=== PATIENT | male | born 1975 | race Caucasian/White ===

== ENCOUNTER → 2017-04-27 | Outpatient (CLI) | payer MEDICARE, BC ==
--- NOTE | 2017-04-27 09:42 | CT ---
EXAMINATION TYPE: CT brain wo/w con DATE OF EXAM: 04/27/2017 COMPARISON: NONE HISTORY: 41-year-old male Hydrocephalus TECHNIQUE: Examination was done in axial plane without intravenous contrast. Coronal and sagittal r econstructions performed. CT DLP: 2163.20 mGycm Automated exposure control for dose reduction was used. FINDINGS: Right parietal approach VENDING SERVICE TECHNICIAN shunt catheter with tip in the right paramedian posterior portion at the l evel of the posterior body of the corpus callosum. Additional right frontal tray holes are present. There is no hydrocephalus. No midline shift. No acute intracranial hemorrhage seen. Hypodensity right paramedian anterior frontal region without mass effect. Additional extensive enceph alomalacia right occipital lobe and right occipital parietal junction. Dural venous sinuses are patent no enhancing intracranial lesions seen. Paranasal sinuses and mastoid air cells well pneumatized. Orbits and globes appear intact. IMPRESSION: 1. Right sided parietal VENDING SERVICE TECHNICIAN shunt catheter with tip at the right paramedian region at the level of the posterior body of the corpus callosum. No significant hydrocephalus. Compare with outside priors to assess stability of the ventricular system. 2. Of encephalomalacia anterior right paramedian frontal lobe and right occipital lobe, right occipit oparietal junction suggest areas of prior infarcts. Clinically correlate. No priors available for com parison purposes. 3. No acute intracranial abnormality seen.
== END | disposition home or self-care (01) ==
LOC: RADCTMAIN 08:30
PROVIDERS: ATTEND Psychiatry & Neurology Neurology
DX: G93.89 Other specified disorders of brain (principal); Z98.2 Presence of cerebrospinal fluid drainage device
CPT/HCPCS: 70470; Q9967

== ENCOUNTER 2019-01-26 15:47 | Emergency (ER) | payer MEDICARE, BC ==
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
[2019-01-26 16:19] VITALS: RESP 18
[2019-01-26] MEDS ORDERED: SODIUM CHLORIDE 0.9% 1,000 ML IV STA (16:31)
[2019-01-26] MEDS ORDERED: PANTOPRAZOLE 40 MG/10 ML VIAL IVP STA (16:31)
[2019-01-26 16:54] LABS: Basophils % (A) 0 %; Eosinophils # (A) 0.1 k/uL (0-0.7); Eosinophils % (A) 1 %; HCT 43.4 % (39.0-53.0); Lymphocytes # (A) 0.6 k/uL (1.0-4.8); Lymphocytes % (A) 8 %; MCH 24.1 pg (25.0-35.0); MCHC 32.3 g/dL (31.0-37.0); MCV 74.8 fL (80.0-100.0); Mean Platelet Volume 7.2; Microcytosis Slight; Monocytes # (A) 0.3 k/uL (0-1.0); Monocytes % (A) 5 %; Neutrophils % (A) 85 %; Platelet Count 382 k/uL (150-450); RBC 5.81 m/uL (4.30-5.90); RDW 15.7 % (11.5-15.5)
[2019-01-26 17:04] LABS: ALT 35 U/L (21-72); AST 21 U/L (17-59); Albumin 4.3 g/dL (3.5-5.0); Alkaline Phosphatase 106 U/L (38-126); Amylase 39 U/L (30-110); Anion Gap 10 mmol/L; Blood Urea Nitrogen 27 mg/dL (9-20); Calcium 9.6 mg/dL (8.4-10.2); Carbon Dioxide 34 mmol/L (22-30); Chloride 96 mmol/L (98-107); Glucose 113 mg/dL (74-99); Lipase 28 U/L (23-300); Potassium 3.5 mmol/L (3.5-5.1); Sodium 140 mmol/L (137-145); Total Bilirubin 0.8 mg/dL (0.2-1.3); Total Protein 7.6 g/dL (6.3-8.2)
[2019-01-26 17:05] LABS: Partial Thromboplastin Time 24.7 sec (22.0-30.0); Prothrombin Time 10.4 sec (9.0-12.0)
--- NOTE | 2019-01-26 17:20 | XR ---
Abdomen single view. History abdominal pain. Comparison 04/27/2011. FINDINGS: 2 views supine were obtained. Bowel gas pattern is normal. There is no sign of intestinal obstruction or pneumoperitoneum. There is inferior vena cava filter. Fecal pattern is normal. There are no patho logic calcifications over the kidneys. IMPRESSION: Nonacute abdomen. No change.
[2019-01-26] MEDS ORDERED: LORazepam 2 MG/ML INJ IV STA (18:30)
[2019-01-26 19:04] LABS: Magnesium 2.6 mg/dL (1.6-2.3); Phosphorus 3.7 mg/dL (2.5-4.5)
[2019-01-26 19:06] LABS: Creatine Kinase 51 U/L (55-170)
[2019-01-26 19:19] LABS: Creatine Kinase MB 0.5 ng/mL (0.0-2.4); Troponin I <0.012 ng/mL (0.000-0.034)
[2019-01-26 19:22] LABS: T4, Free (Free Thyroxine) 1.22 ng/dL (0.78-2.19)
[2019-01-26 19:53] LABS: Amorphous Sediment,Urine Rare /hpf; Appearance,Urine Clear (Clear); Bilirubin,Urine Negative (Negative); Blood,Urine Negative (Negative); Color,Urine Yellow; Glucose,Urine (UA) Negative (Negative); Ketones,Urine Trace (Negative); Leukocyte Esterase,Urine Negative (Negative); Mucus,Urine Few /hpf; Nitrite,Urine Negative (Negative); Protein,Urine 1+ (Negative); RBC,Urine <1 /hpf (0-5); Specific Gravity,Urine 1.029 (1.001-1.035); Sperm,Urine Rare /hpf; WBC,Urine 1 /hpf (0-5)
[2019-01-26 21:25] VITALS: BP 143/98; PULSE 90; TEMP 98
== END 2019-01-26 21:20 | disposition left against medical advice (07) ==
LOC: EC 15:47 → EEVIPCON 15:47 → EC 21:20
DX: E86.0 Dehydration (principal); R11.10 Vomiting, unspecified; I45.81 Long QT syndrome; K21.9 Gastro-esophageal reflux disease without esophagitis; D64.9 Anemia, unspecified; F41.9 Anxiety disorder, unspecified; Z86.14 Personal history of Methicillin resistant Staphylococcus aureus infection; Z79.1 Long term (current) use of non-steroidal anti-inflammatories (NSAID); Z79.899 Other long term (current) drug therapy; Z91.048 Other nonmedicinal substance allergy status; Z53.29 Procedure and treatment not carried out because of patient's decision for other reasons
CPT/HCPCS: 36415; 93005; 84439; 84481; 80053; 82150; 82550; 82553; 83690; 83735; 84100; 84443; 84484; 85025; 85610; 85730; 81001; 74018; 99284; 96374; 96375; 96361 ×5; J2060; C9113

== ENCOUNTER 2020-03-23 14:42 | Emergency (ER) | payer MEDICARE, BC ==
[2020-03-23 14:55] VITALS: TEMP 98.6
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
[2020-03-23] MEDS ORDERED: SODIUM CHLORIDE 0.9% 500 ML 500 ML IV STA (15:13)
[2020-03-23] MEDS ORDERED: SODIUM CHLORIDE 0.9% 1,000 ML IV STA (15:13)
[2020-03-23] MEDS ORDERED: PANTOPRAZOLE 40 MG/10 ML VIAL IVP STA (15:13)
[2020-03-23] MEDS ORDERED: ONDANSETRON 4 MG/2 ML VIAL IVP STA (15:13)
[2020-03-23 15:27] LABS: Anisocytosis Slight; Basophils # (A) 0.1 k/uL (0-0.2); Basophils % (A) 1 %; Eosinophils # (A) 0.2 k/uL (0-0.7); Eosinophils % (A) 1 %; HCT 35.7 % (39.0-53.0); HGB 10.8 gm/dL (13.0-17.5); Hypochromasia Marked; Lymphocytes # (A) 0.5 k/uL (1.0-4.8); Lymphocytes % (A) 4 %; MCH 20.8 pg (25.0-35.0); MCHC 30.3 g/dL (31.0-37.0); MCV 68.8 fL (80.0-100.0); Mean Platelet Volume 7.8; Microcytosis Marked; Monocytes # (A) 0.5 k/uL (0-1.0); Monocytes % (A) 4 %; Neutrophils # (A) 10.2 k/uL (1.3-7.7); Neutrophils % (A) 89 %; Platelet Count 269 k/uL (150-450); RBC 5.18 m/uL (4.30-5.90); RDW 17.8 % (11.5-15.5); WBC 11.4 k/uL (3.8-10.6)
[2020-03-23 15:47] LABS: INR 1.1 (<1.2); Partial Thromboplastin Time 20.3 sec (22.0-30.0); Prothrombin Time 10.8 sec (9.0-12.0)
[2020-03-23 15:48] LABS: ALT 18 U/L (4-49); AST 43 U/L (17-59); African American GFR (CKD) >90 (>60 ml/min/1.73 sqM); Albumin 4.3 g/dL (3.5-5.0); Alkaline Phosphatase 81 U/L (38-126); Anion Gap 10 mmol/L; Blood Urea Nitrogen 19 mg/dL (9-20); Calcium 8.9 mg/dL (8.4-10.2); Carbon Dioxide 27 mmol/L (22-30); Chloride 102 mmol/L (98-107); Creatine Kinase 63 U/L (55-170); Glucose 119 mg/dL (74-99); Magnesium 2.1 mg/dL (1.6-2.3); Non-African American GFR(CKD) >90 (>60 ml/min/1.73 sqM); Potassium 4.5 mmol/L (3.5-5.1); Sodium 139 mmol/L (137-145); Total Protein 7.7 g/dL (6.3-8.2)
[2020-03-23] MEDS ORDERED: LORazepam 2 MG/ML INJ IV STA (16:36)
[2020-03-23 17:38] VITALS: RESP 20
[2020-03-23 17:39] VITALS: PULSE 89
--- NOTE | 2020-03-23 17:39 | CT ---
EXAMINATION TYPE: CT abdomen pelvis w con DATE OF EXAM: 03/23/2020 COMPARISON: None HISTORY: Nausea, vomiting, abdominal pain. CT DLP: 1532.8 mGycm Automated exposure control for dose reduction was used. CONTRAST: Performed with IV Contrast, patient injected with 100 mL of Isovue 300. Images obtained from the diaphragm to the floor the pelvis with IV contrast. There is some mild subsegmental atelectasis at the lung bases. Heart is enlarged. There is hiatal her carol ann. Liver shows no focal defect. There is fatty infiltration of the liver. Bile ducts are not dilate d. Gallbladder appears normal. Spleen is intact. There is no pancreatic mass. There is no adrenal mass. Kidneys show satisfactory contrast opacification. There is no hydronephrosi s. Ureters are not dilated. There is inferior vena cava filter. There is no retroperitoneal adenopath y. Bladder distends smoothly. There is no inguinal hernia. There is no free fluid in the pelvis. Ther e is apparent ventriculoperitoneal shunt catheter on the right side of the abdomen. There is mild tho racolumbar dextroscoliosis. Bony pelvis is intact. There is no lumbar compression fracture. There is some mild fluid in the right paracolic gutter. This could be from the shunt catheter. There is no sig n of thickened appendix. IMPRESSION: Tiny amount of fluid at the right paracolic gutter at the tip of the shunt catheter could be from the shunt catheter. No other fluid collection seen. Mild fatty infiltration of the liver. Mild subsegmental atelectasis at the lung bases. Hiatal hernia.
[2020-03-23] MEDS ORDERED: ONDANSETRON 4 MG/2 ML VIAL IVP PRN (17:44)
[2020-03-23 18:26] VITALS: BP 127/85
[2020-03-24] MEDS ORDERED: PANTOPRAZOLE 40 MG/10 ML VIAL IVP SCH (09:00)
== END 2020-03-23 18:35 | disposition other institution (70) ==
LOC: EC 14:42 → 4SSUR 17:44 → UNDOADMIN 17:44 → EC 18:35
DX: K92.0 Hematemesis (principal); R10.13 Epigastric pain; R63.0 Anorexia; K21.9 Gastro-esophageal reflux disease without esophagitis; E07.9 Disorder of thyroid, unspecified; F41.9 Anxiety disorder, unspecified; Z86.14 Personal history of Methicillin resistant Staphylococcus aureus infection; Z90.49 Acquired absence of other specified parts of digestive tract; Z79.1 Long term (current) use of non-steroidal anti-inflammatories (NSAID); Z79.899 Other long term (current) drug therapy; Z91.048 Other nonmedicinal substance allergy status; Z53.29 Procedure and treatment not carried out because of patient's decision for other reasons
CPT/HCPCS: 99285; 96374; 96361 ×3; 36415; 93005; 86900; 86901; 80053; 82550; 83605; 83690; 83735; 84484; 85025; 85610; 85730; 86850; 74177; C9113; Q9967

== ENCOUNTER → 2020-04-09 | Outpatient (CLI) | payer MEDICARE, BC ==
[2020-04-09 14:58] LABS: Anisocytosis Slight; HCT 30.4 % (39.0-53.0); Hypochromasia Marked; MCH 20.2 pg (25.0-35.0); MCHC 29.3 g/dL (31.0-37.0); MCV 68.8 fL (80.0-100.0); Mean Platelet Volume 7.2; Microcytosis Marked; Platelet Count 481 k/uL (150-450); RBC 4.42 m/uL (4.30-5.90); WBC 3.8 k/uL (3.8-10.6)
[2020-04-09 15:11] LABS: HGB 8.9 gm/dL (13.0-17.5)
[2020-04-09 16:08] LABS: Anisocytosis (M) Present; Basophils # (M) 0.08 k/uL (0-0.2); Eosinophils # (M) 0.11 k/uL (0-0.7); Lymphocytes # (M) 1.37 k/uL (1.0-4.8); Monocytes # (M) 0.19 k/uL (0-1.0); Neutrophils # (M) 2.05 k/uL (1.3-7.7); Neutrophils % (M) 54 %; Nucleated Red Blood Cells 0 /100 WBC (0-0); Ovalocytes Present; Poikilocytosis (M) Present; Polychromasia Present; Target Cells Present; Tear Drop Cells Present; Total Cells Counted 100
[2020-04-09 20:36] LABS: % Iron Saturation 13.3 (15.00-50.00)
== END | disposition home or self-care (01) ==
LOC: LABWHC1 14:00
PROVIDERS: ATTEND Internal Medicine Gastroenterology
DX: D64.9 Anemia, unspecified (principal)
CPT/HCPCS: 36415; 82728; 83540; 83550; 85025

== ENCOUNTER → 2020-07-03 | Day surgery (SDC) | payer MEDICARE, BC ==
[2020-06-28 16:11] VITALS: BMI 21.9
[~2020-07-03] MED LIST: LACTATED RINGERS 1,000 ML IV SCH; LIDOCAINE 1% INJ 10MG/ML (20 ML MDV) ONE; ONDANSETRON 4 MG/2 ML VIAL IVP PRN; PROPOFOL 10 MG/ML 20 ML VIAL IV ONE
[2020-07-03 08:12] VITALS: TEMP 97
--- NOTE | 2020-07-03 09:00 | P.PCN ---
Date of Procedure: 07/03/20 Procedure(s) Performed: BRIEF HISTORY: Patient is a 45-year-old, pleasant, white male scheduled for an upper endoscopy as a part of evaluation of persistent nausea vomiting for the last several months duration. He has been on omeprazole 20 mg daily and initially did well for a few weeks but now continues to have persistent symptoms. PROCEDURE PERFORMED: Esophagogastroduodenoscopy with biopsy. PREOPERATIVE DIAGNOSIS: Chronic nausea vomiting of several months duration. IV sedation per anesthesia. PROCEDURE: After informed consent was obtained, the patient was brought into the endoscopy unit. IV sedation was administered by Anesthesia under continuous monitoring. Initially the Olympus GIF-140 video endoscope was inserted into the mouth. Esophagus intubated without any difficulty. It was gradually advanced into the stomach and duodenum and carefully examined. The bulb and the second part of the duodenum appeared normal. Biopsies were done from the duodenum to rule out celiac disease. The scope at this time was withdrawn to the stomach, adequately insufflated with air, and upon careful examination, mucosa of the antrum, had mild diffuse gastritis and biopsies were done from this area. The body, cardia and the fundus appeared normal. The scope was then withdrawn into the esophagus. The GE junction was located at 39 cm from the incisors. Small hiatal hernia noted. There were linear erosions in the distal esophagus with severe erythema of the mucosa and some exudates consistent with LA grade C reflux esophagitis. Rest of esophagus appeared normal and the patient tolerated the procedure well. IMPRESSION: 1. Severe esophagitis with linear erosions erythema in the distal esophagus consistent with LA grade C reflux esophagitis. 2. Small hiatal hernia 3. Mild antral gastritis. RECOMMENDATIONS: The findings of this examination were discussed with the patient as well as his family. He was advised to increase omeprazole to 20 mg twice daily and continue to follow antireflux measures. He'll be seen in office in 6 weeks..
[2020-07-03 09:32] VITALS: BP 107/65; PULSE 62; RESP 18
== END ==
LOC: ORWHC2ENDO 07:39
PROVIDERS: ATTEND Internal Medicine Gastroenterology
DX: K29.50 Unspecified chronic gastritis without bleeding (principal); K21.0 Gastro-esophageal reflux disease with esophagitis; K22.10 Ulcer of esophagus without bleeding; K44.9 Diaphragmatic hernia without obstruction or gangrene; I69.398 Other sequelae of cerebral infarction; F79 Unspecified intellectual disabilities; Z91.09 Other allergy status, other than to drugs and biological substances; Z79.899 Other long term (current) drug therapy
CPT/HCPCS: 88305; 43239; J2001; J2704

== ENCOUNTER → 2020-08-22 | Outpatient (CLI) | payer MEDICARE, BC ==
[2020-08-22 15:54] LABS: Anisocytosis Slight; Basophils # (A) 0.1 k/uL (0-0.2); Basophils % (A) 2 %; Eosinophils # (A) 0.1 k/uL (0-0.7); Eosinophils % (A) 2 %; HCT 31.9 % (39.0-53.0); HGB 9.2 gm/dL (13.0-17.5); Hypochromasia Marked; Lymphocytes # (A) 1.1 k/uL (1.0-4.8); Lymphocytes % (A) 25 %; MCH 19.8 pg (25.0-35.0); MCV 68.1 fL (80.0-100.0); Mean Platelet Volume 7.1; Microcytosis Marked; Monocytes # (A) 0.3 k/uL (0-1.0); Monocytes % (A) 7 %; Neutrophils # (A) 2.6 k/uL (1.3-7.7); Neutrophils % (A) 61 %; Platelet Count 374 k/uL (150-450); RBC 4.68 m/uL (4.30-5.90); RDW 17.8 % (11.5-15.5); WBC 4.3 k/uL (3.8-10.6)
[2020-08-23 01:46] LABS: % Iron Saturation 5.25 (15.00-50.00); Ferritin 3.1 ng/mL (22.0-322.0)
== END | disposition home or self-care (01) ==
LOC: LABWHC1 14:55
PROVIDERS: ATTEND Internal Medicine Gastroenterology
DX: D64.9 Anemia, unspecified (principal)
CPT/HCPCS: 36415; 82728; 83540; 83550; 85025

== ENCOUNTER 2023-03-16 17:03 | Inpatient (IN) | payer MEDICARE, BC ==
[2023-03-16] MEDS ORDERED: SODIUM CHLORIDE 0.9% 500 ML 500 ML IV STA (17:32)
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
[2023-03-16] MEDS ORDERED: LORazepam 2 MG/ML INJ IV STA (18:23)
[2023-03-16] MEDS ORDERED: levETIRAcetam IV 1,000 MG in SODIUM CHLORIDE 0.9% 250 ML IVPB ONE (18:23)
[2023-03-16] MEDS ORDERED: levETIRAcetam IV 500 MG/5 ML VIAL IVP ONE (18:45)
[2023-03-16 19:00] LABS: Albumin 3.2 g/dL (3.5-5.0); Calcium 8.4 mg/dL (8.4-10.2); Magnesium 2.5 mg/dL (1.6-2.3); Potassium 2.9 mmol/L (3.5-5.1); Total Bilirubin 1.2 mg/dL (0.2-1.3); Total Protein 6.1 g/dL (6.3-8.2)
--- NOTE | 2023-03-16 19:18 | CT ---
EXAMINATION TYPE: CT brain wo con DATE OF EXAM: 03/16/2023 COMPARISON: 04/27/2017 INDICATION: seizure DLP: 1157.4 mGycm, Automated exposure control for dose reduction was used. CONTRAST: None CT of the brain is performed utilizing 3 mm thick sections through the posterior fossa and 3 mm thick sections through the remaining calvarium. Study is performed within 24 hours of arrival to the hosp ital. No abnormal hyperdensity is present to suggest an acute intracranial hemorrhage. No mass lesion is evident. No acute infarcts are evident. There is an old area of encephalomalacia of the right medial occipital lobe. There is placement of a shunt catheter with the tip in the posterior horn right lateral ventri justin. No temporal horn dilatation is evident. Third ventricle is midline. There is some mild extra-axi al space prominence near the vertex. Prior craniotomy is on the right. Findings appear stable from th e comparison. Ventricles and sulci are appropriate for the patient age. Paranasal sinuses and mastoid air cells within the [id number] are clear. IMPRESSIONS: 1. Shunt catheter appears stable from comparison. No hydrocephalus is evident. 2. Encephalomalacia of the medial right occipital lobe, unchanged from comparison. 3. No acute intracranial process apparent.
[2023-03-16] MEDS ORDERED: ONDANSETRON 4 MG/2 ML VIAL IVP PRN (20:15)
[2023-03-16] MEDS ORDERED: ACETAMINOPHEN TAB 325 MG TAB PO PRN (20:15)
[2023-03-16] MEDS ORDERED: NALOXONE 0.4 MG/ML 1 ML VIAL IV PRN (20:15)
[2023-03-16] MEDS ORDERED: POTASSIUM CHLORIDE ER 20 MEQ TAB.ER PO STA (20:17)
[2023-03-16 20:26] LABS: Anisocytosis Slight; Basophils # (A) 0.1 k/uL (0-0.2); Basophils % (A) 0 %; Eosinophils % (A) 0 %; Hypochromasia Marked; Lymphocytes # (A) 0.9 k/uL (1.0-4.8); Lymphocytes % (A) 5 %; MCH 18.4 pg (25.0-35.0); MCHC 28.4 g/dL (31.0-37.0); MCV 64.8 fL (80.0-100.0); Mean Platelet Volume 8.8; Microcytosis Marked; Monocytes # (A) 1.1 k/uL (0-1.0); Monocytes % (A) 7 %; Neutrophils # (A) 14.1 k/uL (1.3-7.7); Neutrophils % (A) 86 %; Platelet Count 374 k/uL (150-450); Poikilocytosis Slight; RBC 4.32 m/uL (4.30-5.90); RDW 18.8 % (11.5-15.5); WBC 16.4 k/uL (3.8-10.6)
--- NOTE | 2023-03-16 20:53 | XR ---
EXAMINATION TYPE: XR chest 1V portable DATE OF EXAM: 03/16/2023 COMPARISON: 11/27/2013 INDICATION: Fever seizures TECHNIQUE: Single frontal view of the chest is obtained. FINDINGS: The heart size is normal. The pulmonary vasculature is normal. Mild infiltrates in the right lower lobe. Correlate for atelectasis and pneumonia Catheter may lie along the right lateral chest. IMPRESSION: 1. Right lower lobe infiltrate. Correlate for atelectasis and pneumonia
[2023-03-16] MEDS ORDERED: Potassium Replacement Protocol 1 EACH MISC MISCELLANE PRN (22:50)
[2023-03-16 22:55] LABS: Glucose,Whole Blood 111 mg/dL (70-110)
[2023-03-16] MEDS: FAMOTIDINE 20 MG TAB PO SCH (23:29)
[2023-03-16] MEDS: SODIUM CHLORIDE 0.9% 1,000 ML IV SCH (23:44)
[2023-03-16] MEDS: PIPERACILLIN-TAZOBACTAM 3.375 GM in SODIUM CHLORIDE 0.9% 100 ML IVPB SCH (23:47)
[2023-03-16] MEDS: POTASSIUM CHLORIDE 20 MEQ in WATER FOR INJECTION 1 100ML.BAG IVPB SCH (23:49)
[2023-03-17 00:15] LABS: Amorphous Sediment,Urine Moderate /hpf; Appearance,Urine Cloudy (Clear); Bacteria,Urine Moderate /hpf; Bilirubin,Urine Negative (Negative); Blood,Urine Negative (Negative); Calcium Oxalate Crystals,Urine Occasional /hpf; Color,Urine Yellow; Glucose,Urine (UA) Negative (Negative); Hyaline Casts,Urine 20 /lpf (0-2); Ketones,Urine Negative (Negative); Leukocyte Esterase,Urine Negative (Negative); Mucus,Urine Occasional /hpf; Nitrite,Urine Negative (Negative); PH, Urine 5.5 (5.0-8.0); Protein,Urine 1+ (Negative); RBC,Urine 2 /hpf (0-5); Specific Gravity,Urine 1.026 (1.001-1.035); WBC,Urine 5 /hpf (0-5)
[2023-03-17] MEDS: POTASSIUM CHLORIDE 20 MEQ in WATER FOR INJECTION 1 100ML.BAG IVPB SCH ×2 (01:41→03:43)
[2023-03-17] MEDS ORDERED: LORazepam 2 MG/ML INJ IV PRN (05:23)
[2023-03-17] MEDS ORDERED: MORPHINE SULFATE 2 MG/ML SYRINGE IVP PRN (06:14)
[2023-03-17] MEDS: PIPERACILLIN-TAZOBACTAM 3.375 GM in SODIUM CHLORIDE 0.9% 100 ML IVPB SCH ×3 (06:27→22:48)
[2023-03-17] MEDS: levETIRAcetam IV 500 MG/5 ML VIAL IVP SCH ×2 (06:49→18:35)
[2023-03-17] MEDS ORDERED: levETIRAcetam IV 1,000 MG in SODIUM CHLORIDE 0.9% 250 ML IVPB SCH (07:00)
[2023-03-17] MEDS: oxyBUTYnin chloride 5 MG TAB PO SCH ×3 (09:45→19:41)
[2023-03-17] MEDS: FAMOTIDINE 20 MG TAB PO SCH ×2 (09:45→19:41)
[2023-03-17] MEDS: SODIUM CHLORIDE 0.9% 1,000 ML IV SCH (10:57)
[2023-03-17 11:19] LABS: Anisocytosis Slight; Basophils % (A) 1 %; Eosinophils # (A) 0.1 k/uL (0-0.7); Eosinophils % (A) 1 %; HCT 26.2 % (39.0-53.0); HGB 7.2 gm/dL (13.0-17.5); Hypochromasia Marked; Lymphocytes # (A) 0.8 k/uL (1.0-4.8); Lymphocytes % (A) 12 %; MCH 18.1 pg (25.0-35.0); MCHC 27.6 g/dL (31.0-37.0); MCV 65.7 fL (80.0-100.0); Mean Platelet Volume 8.7; Microcytosis Marked; Monocytes # (A) 0.5 k/uL (0-1.0); Monocytes % (A) 7 %; Neutrophils # (A) 5.5 k/uL (1.3-7.7); Neutrophils % (A) 77 %; Platelet Count 279 k/uL (150-450); Poikilocytosis Slight; RBC 3.98 m/uL (4.30-5.90); WBC 7.1 k/uL (3.8-10.6)
[2023-03-17 11:32] LABS: Calcium 8.2 mg/dL (8.4-10.2); Magnesium 2.6 mg/dL (1.6-2.3)
[2023-03-17 12:11] VITALS: BMI 21.9
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
[2023-03-18] MEDS: SODIUM CHLORIDE 0.9% 1,000 ML IV SCH (03:19)
[2023-03-18] MEDS: PIPERACILLIN-TAZOBACTAM 3.375 GM in SODIUM CHLORIDE 0.9% 100 ML IVPB SCH (06:44)
[2023-03-18] MEDS: levETIRAcetam IV 500 MG/5 ML VIAL IVP SCH (06:44)
[2023-03-18] MEDS: FAMOTIDINE 20 MG TAB PO SCH (08:15)
[2023-03-18] MEDS: oxyBUTYnin chloride 5 MG TAB PO SCH (08:15)
[2023-03-18 08:22] VITALS: RESP 18; TEMP 97.6
[2023-03-18 12:02] VITALS: BP 108/72; PULSE 92
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
== END 2023-03-18 12:35 | disposition hospice, home (50) | DRG 897 ==
LOC: EC 17:03 → 3SCARD 20:17
PROVIDERS: ADMIT Internal Medicine; ATTEND Internal Medicine
DX: F13.239 Sedative, hypnotic or anxiolytic dependence with withdrawal, unspecified (principal); R56.9 Unspecified convulsions; K21.9 Gastro-esophageal reflux disease without esophagitis; N31.9 Neuromuscular dysfunction of bladder, unspecified; G93.89 Other specified disorders of brain; F41.9 Anxiety disorder, unspecified; E03.9 Hypothyroidism, unspecified; Z66 Do not resuscitate; V09.9XXS Pedestrian injured in unspecified transport accident, sequela; Z87.820 Personal history of traumatic brain injury; Z51.5 Encounter for palliative care; Z87.01 Personal history of pneumonia (recurrent); Z28.310 Unvaccinated for COVID-19; Z99.3 Dependence on wheelchair; Z87.19 Personal history of other diseases of the digestive system
CPT/HCPCS: 36415; 70450; 71045; 80048; 80053; 81001; 83735; 85025; 86850; 86900; 86901; 93005; 94760; 96361; 96374; 96375; 99291